=== PATIENT | female | born 2000 | race Caucasian/White ===

== ENCOUNTER 2019-03-17 23:09 | Emergency (ER) | payer OTHER ==
[~2019-03-17] VITALS: Ht 167.6 cm; Wt 77.6 kg
--- NOTE | 2019-03-17 23:20 | NUR ---
PT BIBMOTHER C/O PALPITATIONS AND HEADACHE. PT STATES SHE STARTED EXPERIENCING SYMPTOMS AFTER DRINKING COFFEE. PT AAOX4. RESPIRATIONS EVEN AND UNLABORED. VITAL SIGNS STABLE. NO ACUTE DISTRESS NOTED AT THIS TIME. WILL CONTINUE TO MONITOR
--- NOTE | 2019-03-18 00:28 | NUR ---
Patient discharged to home in stable condition. Written and verbal after care instructions given. Patient verbalizes understanding of instruction.Pt ambulatory with a steady gait
[2019-03-18 00:29] VITALS: BP 122/74
== END 2019-03-18 00:29 | disposition home or self-care (01) ==
LOC: ER 23:14
DX: R00.2 Palpitations (principal)
CPT/HCPCS: 71045-TC

== ENCOUNTER 2019-04-14 16:03 | Emergency (ER) | payer OTHER ==
[~2019-04-14] VITALS: Ht 170.2 cm; Wt 77.1 kg
[2019-04-14 16:13] VITALS: BP 123/71
--- NOTE | 2019-04-14 16:35 | NUR ---
Patient discharged to home in stable condition. Written and verbal after care instructions given. Patient verbalizes understanding of instruction.
== END 2019-04-14 16:36 | disposition home or self-care (01) ==
LOC: ER 16:06
DX: R51 Headache (principal)